=== PATIENT | female | born 1985 | race Caucasian/White ===

== ENCOUNTER 2023-07-28 09:07 | Outpatient (CLI) | payer BC, SELFPAY ==
[2023-07-28 09:11] VITALS: BMI 24.3
[2023-07-28 09:15] VITALS: BP 131/80; PULSE 70
[2023-07-28 09:23] LABS: Nitrazine Paper, PH Negative
[2023-07-28 09:29] LABS: Actim Prom Negative
[2023-07-28 09:30] VITALS: BP 114/72; PULSE 73
[2023-07-28 09:46] VITALS: BP 128/70; PULSE 71
[2023-07-28 10:00] VITALS: BP 121/70; PULSE 63
[2023-07-28 10:17] LABS: Amphetamines Screen Urine Negative (Negative); Barbiturates Screen Urine Negative (Negative); Benzodiazepines Screen Urine Negative (Negative); Cocaine Screen Urine Negative (Negative); Opiate Screen Urine Negative (Negative); PCP Screen Urine Negative (Negative); THC Screen Urine Negative (Negative)
[2023-07-28 10:21] VITALS: BP 121/70; PULSE 63
== END 2023-07-28 10:22 | disposition home or self-care (01) ==
LOC: OBGYN 10:05 → OPOB 07-29 07:29 → OBGYN 07-29 07:30
PROVIDERS: Visit Provider Obstetrics & Gynecology
DX: O26.899 Other specified pregnancy related conditions, unspecified trimester (principal); Z3A.00 Weeks of gestation of pregnancy not specified; R10.9 Unspecified abdominal pain; N89.8 Other specified noninflammatory disorders of vagina
CPT/HCPCS: 59025; 80306; 83986; 84112; 99211